=== PATIENT | female | born 1940 | race Caucasian/White ===

== ENCOUNTER 2016-09-24 05:31 | Day surgery (SDC) | payer MEDICARE, BC ==
[2016-09-21 12:37] LABS: HEMATOCRIT 38.2 % (36.0-48.0); HEMOGLOBIN 12.1 g/dL (12-16); MCH 27.9 pg (26.0-34.0); MCHC 31.7 g/dL (31.0-37.0); MCV 88.2 fL (80.0-100.0); MEAN PLATELET VOLUME 9.6 fL (7.4-10.4); RBC 4.33 10x6/uL (4.00-5.40); RDW 15.2 % (11.5-14.5); WBC 8.8 10x3/uL (4.8-10.8)
[2016-09-21 12:52] LABS: APTT 24.9 SECONDS (22.8-39.4); INR 1.15 (0.85-1.17); PROTIME 14.6 SECONDS (11.6-15.0)
[~2016-09-24] VITALS: Ht 162.6 cm; Wt 66.7 kg
[~2016-09-24 05:31] MED LIST: ACETAMINOPHEN325 MG PO; ACIPHEX20 MG PO; BENTYL10 MG PO; BIOTIN5 MG PO; COZAAR50 MG PO; ELIQUIS5 MG PO; HYDROCODON-ACE1 EAC7 PO; METOPROLOL TART50 MG PO; PROBIOTIC1 EAC1 PO; TOPROL XL50 MG PO
[2016-09-24 09:55] VITALS: Ht 162.6 cm; Wt 66.7 kg
[2016-09-24] MEDS ORDERED: HYDROCODONE-APA1 TAB PO (13:27)
--- NOTE | 2016-09-24 14:50 | NUR ---
SITTING ON SIDE OF BED, DRESSED IN PERSONAL CLOTHING, DISCHARGE INSTRUCTIONS REVIEWED WITH PATIENT AND SPOUSE, DISCHARGED HOME VIA WHEELCHAIR TO PRIVATE VEHICLE WITH SPOUSE
--- NOTE | 2016-09-24 17:08 | OP ---
PATIENT NAME: LATOSHA ELDER MEDICAL RECORD: [id number] :42 LOCATION:D.OPS ADMISSION DATE: SURGEON: WESLY VALERIO MD DATE OF OPERATION: 09/24/2016 PREOPERATIVE DIAGNOSIS: De Quervain stenosing tenosynovitis of the left wrist. POSTOPERATIVE DIAGNOSIS: De Quervain stenosing tenosynovitis of the left wrist. PROCEDURE: De Quervain's release. SURGEON: Wesly Valerio MD. ANESTHESIA: General. INTRAOPERATIVE COMPLICATIONS: None. SUMMARY OF PATHOLOGIC FINDINGS: The patient had severe tenosynovitis consistent with the preoperative diagnosis. OPERATIVE SUMMARY IN DETAIL: After obtaining the appropriate preoperative orthopedic surgery consent as well as anesthetic consultation, evaluation and clearance, the patient was brought to the operating room and placed on the operating table in supine position. After general laryngeal mask was administered, tourniquet was placed about the proximal aspect of the left upper extremity. Left upper extremity was then prepped and draped in routine sterile fashion. The arm was elevated and exsanguinated, tourniquet inflated to 250 mmHg. An incision was made just over the radial tuberosity taken down the superficial branch of radial nerve was identified and retracted to the case. The tendon sheath was released to find a substantial amount of tenosynovitis. This was excised. The wound was irrigated and closed with 4-0 Prolene in running fashion. The area was locally infiltrated with 0.25% Marcaine plain. Sterile dressings were applied. Tourniquet was deflated. The patient was awakened, taken to recovery in stable condition. All final needle and sponge counts were correct. TRANSINT:[id number] Voice Confirmation ID: [id number] DOCUMENT ID: [id number] WESLY VALERIO MD at 1708 CC: [id number] DICTATION DATE: 09/24/16 1325 SAIL FINISHER HAND: 09/24/16 1652 [facility] 09/24/[address] [address]
== END 2016-09-24 14:50 | disposition home or self-care (01) ==
LOC: D.OPS 05:31 → D.PAN 11:15 → D.OPS 11:15 → D.PAN 11:25 → D.OPS 13:30 → D.PAN 13:30 → D.OPS 14:50
PROVIDERS: Anesthesiology
DX: M65.4 Radial styloid tenosynovitis [de Quervain] (principal)

== ENCOUNTER → 2018-09-05 15:19 | Outpatient (CLI) | payer MEDICARE ==
[2016-09-24 09:55] VITALS: BMI 25.3
[~2018-09-05 15:19] MED LIST changes: +HYDROCODONE-APA1 TAB PO
== END | disposition home or self-care (01) ==
LOC: D.CT 15:19
DX: M54.5 Low back pain (principal); M48.061 Spinal stenosis, lumbar region without neurogenic claudication

== ENCOUNTER 2020-04-21 11:06 | Day surgery (SDC) | payer MEDICARE ==
[~2020-04-21] VITALS: Ht 162.6 cm; Wt 74.2 kg
--- NOTE | ~2020-04-21 | HEMODYNAMI ---
PATIENT:LATOSHA ELDER MEDICAL RECORD: [id number] : 42 LOCATION:D[facility]ONIS ADMISSION DATE: 04/21/20 Generatedon:04/21/202013:33 Patient name: LATOSHA ELDER Patient #: [id number] SSN: : 1940 Date of study: 04/21/2020 Page: Of Hemodynamic Procedure Report Patient Data Patient Demographics Procedure consent was obtained First Name: LATOSHA Gender: Female Last Name: JAEL : 1940 [facility] Initial: K Age: 80 year(s) Patient #: [id number] Race: Unknown Additional ID: [id number] Contact details [address]: [address] [place] [address] State: [place] City: [place] Zip code: [address] Past Medical History Allergies Allergen Reaction Date Comments Reported Sulfa drugs 04/21/2020 Admission Admission Data Admission Date: 04/21/2020 Admission Time: 11:06 Procedure Procedure Types Cath Procedure Diagnostic Procedure PPM/ICD Permanent Pacer Generator Exg. Sedation Charges Moderate Sedation up to 15 minutes Procedure Description Procedure Date Procedure Date: 04/21/2020 Procedure Start Time: 13:14 Procedure Staff Name Function Mandeep Morgan RT Monitor Haleigh Miller RT Scrub Leonardo Dillon RN Nurse Rohit Vanessa MD Performing Physician Vcítor Mayorga MD Assisting physician Procedure Data Cath Procedure Fluoroscopy Diagnostic fluoroscopy Total fluoroscopy Time: 0 time: 0 min min Diagnostic fluoroscopy Total fluoroscopy dose: 0 dose: 0 mGy mGy Estimated blood loss: 5 ml Procedure Complications No complications Procedure Medications Medication Administration Route Dosage Ancef (1Gm/50ml NS) I.V.P.B 1 g Ancef Irrigation Topical 1 g (1gm/500ml NS) Fentanyl I.V. 50 mcg Versed I.V. 1 mg Fentanyl I.V. 50 mcg Versed I.V. 1 mg Hemodynamics Rest Heart Rate: 85 (bpm) Snapshots Pre Cath Intra NCS Post Cath Vital Signs Time Heart Resp SPO2 etCO2 NIBP (mmHg) Rhythm Pain Sedation Rate (ipm) (%) (mmHg) Status Level (bpm) 12:49:36 86 17 0 181/93(141) NSR (Missing) 10(A) 12:53:52 83 17 0 172/100(128) NSR (Missing) 10(A) 12:58:08 85 16 95 0 144/80(110) NSR (Missing) 10(A) 13:02:20 79 17 96 0 134/73(102) NSR (Missing) 10(A) 13:06:32 89 16 95 0 131/78(97) NSR (Missing) 10(A) 13:10:48 75 17 96 0 134/67(111) NSR (Missing) 10(A) 13:15:53 81 17 95 0 149/86(125) NSR (Missing) 9(A) 13:20:07 103 17 94 0 120/71(101) NSR (Missing) 9(A) 13:24:17 80 16 96 0 121/71(98) NSR (Missing) 9(A) 13:28:29 69 17 97 0 129/65(105) NSR (Missing) 9(A) 13:30:28 80 17 92 0 114/78(98) NSR (Missing) 9(A) Medications Time Medication Route Dose Verified Delivered Reason Notes Effectiv eness by by 12:47:42 Ancef I.V.P.B 1 g Rohit Patterson Per (1Gm/50ml St Noah Dillon RN physician NS) 12:47:51 Ancef Topical 1 g Víctor Patterson used for Irrigation Jonah Dillon winderman (1gm/500ml NS) 13:14:43 Fentanyl I.V. 50 Víctor Patterson for [facility] [place] Jonah Dillon RN sedation 13:14:50 Versed I.V. 1 mg Víctor Patterson for Jonah Dillon RN sedation 13:21:48 Fentanyl I.V. 50 Víctor Patterson for [facility] [place] Jonah Dillon RN sedation 13:21:52 Versed I.V. 1 mg Víctor Patterson for Jonah Dillon RN sedation Procedure Log Time Note 12:29:23 Diagnostic Cath Status : Elective 12:30:12 Procedure Status PPM/ Gen Change/ Lead Revision/ Temp. 12:30:15 Mandeep Morgan RT(R) sent for patient. Start room use. 12:30:15 Time tracking: Regular hours (M-F 7:00 - 5:00) 12:30:19 Plan of Care:Hemodynamics will remain stable., Cardiac rhythm will remain stable., Comfort level will be maintained., Respiratory function will remain adequate., Patient/ family verbilizes understanding of procedure., Procedure tolerated without complication., Recovers from procedure without complications.. 12:41:57 Patient arrived from Pre/Post Procedure Room to CCL 3. Patient remains on bed/stretcher for procedure. 12:41:59 Warm blankets applied, and reinier hugger turned on for patient comfort. 12:42:00 Signed procedure consent form obtained from patient. 12:42:01 Correct patient and procedure confirmed by team. 12:42:02 ECG and BP/O2 sat monitors applied to patient. 12:42:03 Full Disclosure recording started 12:42:20 H&P Date Dictated: 04/07/2020 Within 30 days and on chart., H&P Addendum completed by physician on day of procedure. (MUST COMPLETE FOR ALL OUTPATIENTS). 12:42:22 Pre-procedure instructions explained to patient. 12:42:22 Pre-op teaching completed and patient verbalized understanding. 12:42:24 Family in patients room. 12:42:25 Patient NPO since Midnight. 12:42:36 Patient allergic to Sulfa drugs 12:42:46 Baseline sample Acquired. 12:43:06 Is the patient allergic to Iodine/contrast media? No. 12:43:08 Is patient on blood thinner?Yes 12:43:23 ELIQUIS HELD FOR THREE DAYS 12:43:26 Patient diabetic? No. 12:43:28 If diabetic: On Metformin? No 12:43:31 Previous problem with sedation/anesthesia? No ? 12:43:32 Snore? Yes 12:43:33 Sleep apnea? No 12:43:34 Deviated septum? No 12:43:34 Opens mouth fully? Yes 12:43:44 Sticks out tongue? Yes 12:43:47 Airway obstruction? No ? 12:43:49 Dentures? No ? 12:43:57 Patient pain scale 0/10 ?. 12:44:12 Left chest area was prepped with chlora-prep and draped in sterile fashion 12:44:13 Alarms reviewed by R. N. 12:44:13 Sharps counted by scrub and verified by R.N. 12:44:24 IV patent on arrival in left hand with 0.9% NaCl at [facility]. 12:44:29 Lab results completed and on chart. 12:47:33 Baseline sample Acquired. 12:47:33 Vital chart was started 12:47:38 Rhythm: sinus rhythm , paced 12:47:42 Ancef (1Gm/50ml NS) 1 g I.V.P.B was administered by Leonardo Dillon RN; Per physician; Verbal order read back and verified. 12:47:51 Ancef Irrigation (1gm/500ml NS) 1 g Topical was administered by Leonardo Dillon RN; used for procedure; Verbal order read back and verified. 12:48:16 [employer] financial services representative FRANCA DELANEY present for procedure. 12:48:19 Use device set JONAH PPM 12:48:20 2-0 Ticron Multipack ([id number]) opened to sterile field. 12:48:21 3-0 Vicryl Single Pack [id number] opened to sterile field. 12:48:21 5-0 Monocryl PS2 [id number] opened to sterile field. 12:48:22 Cautery Tip Natural Gas Shothole Driller opened to sterile field. 12:48:22 Cautery Pushbutton Pencil opened to sterile field. 12:48:23 Mepilex Dressing ([id number]) opened to sterile field. 12:48:[address] Generator [id number] opened to sterile field. 12:49:42 Pre sharps counted by scrub and verified by RN: Sutures: 7; Sponges: 5; Stick needles: 0; Skin needles: 2; Blade: 1; Cautery: 1 12:49:44 Grounding pad site Left thigh. 12:49:45 Grounding pad site free from injury. 13:11:30 Physician arrived 13::32 --------ALL STOP TIME OUT------ 13:11:32 Final Timeout: patient, procedure, and site verified with staff and physician. All members of the team are in agreement. 13:11:41 Left chest site verified by team. 13:11:45 Fire Safety Assessment: A--An alcohol-based skin anteseptic being used preoperatively., C--Open oxygen or nitrous oxide is being used., D--An ESU, laser, or fiber-optic light is being used. 13:11:57 Physical assessment completed. ASA score P 2 - A patient with mild systemic disease as per Rohit Vanessa MD. 13:12:02 Sedation plan: IV Moderate Sedation Medication:Versed, Fentanyl 13:14:43 Fentanyl 50 mcg I.V. was administered by Leonardo Dillon RN; for sedation; Verbal order read back and verified. 13:14:50 Versed 1 mg I.V. was administered by Leonardo Dillon RN; for sedation; Verbal order read back and verified. 13:14:59 Lidocaine 1% was administered to left subclavicular area by Víctor Mayorga MD . 13:15:33 Incision made to left subclavicular area. 13:19:52 Generator pocket made/opened. 13:21:13 PPM Dual was removed.. 13:21:16 PPM Dual was attached to lead(s) and inserted into pocket. 13:21:28 Device pocket was irrigated with Ancef. 13:21:48 Fentanyl 50 mcg I.V. was administered by Leonardo Dillon RN; for sedation; Verbal order read back and verified. 13:21:52 Versed 1 mg I.V. was administered by Leonardo Dillon RN; for sedation; Verbal order read back and verified. 13:23:20 PPM Dual was interrogated. 13:23:27 Generator was sutured in place with 2-0 ticron. 13:25:26 Subcutaneous closure was completed with 3-0 vicryl plus. 13:26:09 Skin closure was completed with 5-0 monocryl. 13:28:35 Parameters--Atrial P/R Wave: 2.1mV. Current: ?mA; Threshold: 0.5V; Impedence: 545OHMS. 13:28:54 Parameters--Ventricular P/R Wave: 6.2mV. Current: ?mA; Threshold: 0.75V; Impedence: 1088OHMS. 13:29:07 Parameters-- Generator: Mode: DDDR. Lower Rate: 60bpm. Upper Rate: 120bpm. 13:29:30 Lt Chest incision was dressed with Mepilex dressing. 13:29:33 Procedure ended.(Physican Out) 13::52 Fluoroscopy time 00.00 minutes. 13::54 Fluoroscopy dose: 0 mGy 13::54 Flurop Dose total: 0 13::56 Dose Area Product 0 mGy/cm. 13:30:17 Sharps counted by scrub and verified by R.N. 13:30:27 Post sharps counted by scrub and verified by RN: Sutures: 7; Sponges: 5; Stick needles: 0; Skin needles: 2; Blade: 1; Cautery: 1 13:30:36 Insertion/operative site no bleeding no hematoma. 13:30:40 Post Procedure Pulses reassessed and unchanged 13:30:43 Post-procedure physical assessment completed. ASA score P 2 - A patient with mild systemic disease as per Víctor Mayorga MD. 13:30:46 Post procedure rhythm: unchanged. 13:30:49 Estimated blood loss: 5 ml 13:30:50 Post procedure instruction explained to patient.Patient verbalizes understanding. 13:30:51 Patient needs reinforcement of post procedure teaching. 13:31:21 Procedure type changed to Cath procedure, Diagnostic procedure, PPM/ICD, Permanent Pacer Generator Exg., Sedation Charges, Moderate Sedation up to 15 minutes 13:31:49 Procedure and supply charges have been captured, reviewed, submitted and are correct. 13:31:51 Procedure Complication : No complications 13:31:54 Vital chart was stopped 13:31:56 Operative report dictated upon procedure completion. 13:31:57 Report given to Pre/Post Procedure Room. 13:31:59 Patient transfered to Pre/Post Procedure Room with Stretcher. 13:32:11 End room use (Document Last) 13:32:38 End room use (Document Last) 13:32:52 Haleigh Miller RT(R) was relieved by Mandeep Morgan RT(R) as monitoring person 13:32:52 End room use (Document Last) 13:33:13 End room use (Document Last) 13:33:21 Mandeep Morgan RT(R) was relieved by Mandeep Morgan RT(R) as monitoring person 13:33:21 End room use (Document Last) Device Usage Item Name Manufacture Quantity Catalog Hospital Part Current Minima l Lot# / Number Charge Number Stock Stock Serial# Code 2-0 Ticron Ethicon 9 [id number] 5 Multipack ([id number]) 3-0 Vicryl Ethicon 1 [id number] [id number] 5 Single Pack [id number] 5-0 Monocryl Ethicon 1 [id number] 886237 403173 346357 5 PS2 Y495G Cautery Tip Microtek 1 [id number] [id number] 554007 [id number] 5 Natural Gas Shothole Driller [employer] Cautery Microtek 1 [id number] [id number] 5 Pushbutton [employer] Pencil Mepilex Cardinal 1 [id number] 103294 [id number] [id number] 5 Dressing Health ([id number]) Medtronic Medtronic 1 [id number] 5 2021-08-[address] SN: Generator [id number] Signature Audit [place] Stage Time Signature Unsigned Intra-Procedure 04/21/2020 Mandeep Morgan 1:32:38 PM RT(R) Intra-Procedure 04/21/2020 Leonardo Dillon 1:33:14 PM RN Intra-Procedure 04/21/2020 Rohit Reynoso 1:33:39 PM Noah [facility] [address] [place] [address]
[2020-04-21] MEDS ORDERED: SLOW RELEASE I160 MG PO (12:12)
[2020-04-21] MEDS ORDERED: D MANNOSE (12:13)
[2020-04-21 12:16] VITALS: BP 138/73; Ht 162.6 cm; Wt 74.2 kg
[2020-04-21 12:37] LABS: ANION GAP 12.1 mmol/L (8-16); CALCIUM 8.6 mg/dL (8.5-10.1); CARBON DIOXIDE 25.2 mmol/L (21.0-32.0); CREATININE - SERUM 1.4 mg/dL (0.6-1.3); HEMATOCRIT 41.6 % (36.0-48.0); HEMOGLOBIN 13.6 g/dL (12-16); MCH 30.1 pg (26.0-34.0); MCHC 32.7 g/dL (31.0-37.0); MEAN PLATELET VOLUME 9.8 fL (7.4-10.4); POTASSIUM - SERUM 4.3 mmol/L (3.5-5.1); RBC 4.52 10x6/uL (4.00-5.40); RDW 13.5 % (11.5-14.5); WBC 6.5 10x3/uL (4.8-10.8)
[2020-04-21 12:40] LABS: APTT 22.8 SECONDS (22.8-39.4); INR 0.98 (0.85-1.17); PROTIME 12.9 SECONDS (11.6-15.0)
[2020-04-21] MEDS ORDERED: HYDROCODON-ACE1 EA10 PO (13:31)
--- NOTE | 2020-04-21 13:45 | NUR ---
PT REC'D TO ROOM 3 VIA STRETCHER FROM BD SPECIAL EDUCATION TEACHER. MONITORS ESTAB. AT BS. SEE PROJECT SCIENTIST, ALARMS ON AND C/L IN REACH.
--- NOTE | 2020-04-21 14:00 | NUR ---
L CHEST PPM DSG C/D/I, CM - PACED. PT RESTING QUIETLY, VSS. C/L IN REACH.
--- NOTE | 2020-04-21 14:30 | NUR ---
L CHEST DSG C/D/I, PT SITTING UP EATING. VSS. PT DENIES PAIN OR NEEDS. AT BS.
--- NOTE | 2020-04-21 14:43 | NUR ---
ALL DISCHARGE INSTRUCTIONS REVIEWED WITH PT AND ONDINA, INCLUDING RESTRICTIONS, MEDS AND F/U APPT. NO QUESTIONS AT THIS TIME. PIV D/C'D INTACT, DSG APPLIED. PT ALLOWED UP TO GET DRESSED AND GO TO BR INDEPENDENTLY.
--- NOTE | 2020-04-21 14:50 | NUR ---
PT D/C'D VIA WC TO PRIVATE VEHICLE WITH ALL PAPERWORK AND BELONGINGS.
--- NOTE | 2020-04-22 15:05 | OP ---
PATIENT NAME: LATOSHA ELDER MEDICAL RECORD: [id number] :42 LOCATION:D.CAT ADMISSION DATE: SURGEON: ABISAI MCKENZIE MD DATE OF OPERATION: 04/21/2020 PREOPERATIVE DIAGNOSIS: End-of-life pacemaker generator. POSTOPERATIVE DIAGNOSIS: End-of-life pacemaker generator. PROCEDURE: Left subclavian vein dual lead pacemaker generator exchange. SURGEON: Abisai Mckenzie MD REPORT OF PROCEDURE: The patient's left chest was prepped and draped in sterile fashion. A 20 mL of 1% lidocaine with epinephrine was infused into the surrounding tissues. A transverse incision was made overlying the pacemaker. Electrocautery was used to dissect through the subcutaneous tissues and we encountered the pacemaker. This was eviscerated through the wound and the leads were released from any attachments. We then disconnected the leads and placed into a new pacemaker generator. This appeared to be functioning appropriately. We then placed the leads and the generator into the subcutaneous pouch and sutured this down with a single interrupted 2-0 TiCron. We irrigated out the wound bed with antibiotic solution. The subcutaneous tissue was reapproximated with interrupted 3-0 Vicryl and the skin was closed with running subcutaneous 5-0 Monocryl. COMPLICATIONS: None. CONDITION: Stable. ANESTHESIA: Local MAC. BLOOD LOSS: Minimal. TRANSINT:[id number] Voice Confirmation ID: [id number] DOCUMENT ID: [id number] ABISAI MCKENZIE MD at 1505 CC: [id number] DICTATION DATE: 04/21/20 1334 MAIL ROOM: 04/21/20 1621 [facility] 04/21/20 [id number] [place] [address]
== END 2020-04-21 14:50 | disposition home or self-care (01) ==
LOC: D.CATH 11:06
PROVIDERS: ATTEND Internal Medicine Interventional Cardiology
DX: Z95.0 Presence of cardiac pacemaker (principal); I05.9 Rheumatic mitral valve disease, unspecified; E78.5 Hyperlipidemia, unspecified; I10 Essential (primary) hypertension; I20.9 Angina pectoris, unspecified; I49.5 Sick sinus syndrome; R42 Dizziness and giddiness